=== PATIENT | male | born 1960 | race Caucasian/White ===

== ENCOUNTER 2016-10-27 14:54 | Emergency (ER) | payer OTHER, MEDICAID ==
[~2016-10-27] VITALS: Ht 175.3 cm; Wt 117.0 kg
[2016-10-27 15:35] VITALS: BP 114/57
[2016-10-27] MEDS ORDERED: cefTRIAXone 1GM/50ML D5W 50 ML IV ONE (17:30)
[2016-10-27] MEDS ORDERED: ONDANSETRON HCL 4 MG/2 ML VIAL ONE (18:08)
[2016-10-27] MEDS ORDERED: MORPHINE SULFATE 4 MG/ML SYRG ONE (18:08)
[2016-10-27] MEDS ORDERED: ONDANSETRON HCL 4 MG/2 ML VIAL IV ONE (18:15)
[2016-10-27] MEDS ORDERED: MORPHINE SULFATE 4 MG/ML SYRG IV ONE (18:15)
== END 2016-10-27 18:43 | disposition home or self-care (01) ==
LOC: ER 14:54
DX: N45.1 Epididymitis (principal)
CPT/HCPCS: 76870; 96365; 99284; J0696; J2270; J2405

== ENCOUNTER 2016-10-30 05:32 | Emergency (ER) | payer OTHER, MEDICAID ==
[~2016-10-30] VITALS: Ht 175.3 cm; Wt 113.4 kg
[2016-10-30 06:31] LABS: Hematocrit 26.5 % (41.0-53.0); Hemoglobin 9.2 g/dL (13.5-17.5); Mean Corpuscular Hgb Conc. 34.8 g/dL (32.0-36.0); Mean Corpuscular Volume 83.2 fL (80.0-100.0); Mean Platelet Volume 8.9 fL (7.4-10.4); Platelet Count (auto) 160 10^3/uL (140-450); Red Cell Distribution Width 14.3 % (11.6-16.0); SUSPECT VIEW TRANSMISSION; White Blood Cell 22.6 10^3/uL (4.4-10.8)
[2016-10-30 06:53] LABS: Albumin 1.5 g/dL (3.4-5.0); BUN/Creatinine Ratio 14.6; Calcium 8.3 mg/dL (8.5-10.1); Potassium 3.8 mmol/L (3.5-5.1)
[2016-10-30 06:56] LABS: Bilirubin, Total 0.2 mg/dL (0.2-1.0); Total Protein 6.8 g/dL (6.4-8.2)
[2016-10-30 07:22] LABS: Metamyelocytes % 0; Myelocytes % 0; Promyelocytes % 0; Reactive Lymphocytes 0
[2016-10-30 07:37] LABS: Platelet Estimate Adequate
[2016-10-30 07:39] LABS: Giant Platelets Few; Toxic Granulation Slight
[2016-10-30] MEDS ORDERED: PIPERACILLIN-TAZOB 3.375GM 100 ML IV ONE (09:15)
[2016-10-30] MEDS ORDERED: SODIUM CHLORIDE 0.9% 1,000 ML IV ONE ×2 (09:37)
[2016-10-30 09:45] LABS: Urine Bilirubin Negative (Negative); Urine Color Yellow (Yellow); Urine Ketone Negative (Negative); Urine Nitrite Negative (Negative); Urine RBC 23 /hpf (0 - 3); Urine Squamous Epithelial Cell FEW /hpf (<5); Urine Urobilinogen Normal (Negative)
[2016-10-30] MEDS ORDERED: CLINDAMYCIN 900MG IV 50 ML IV ONE (09:45)
[2016-10-30 09:47] LABS: Urine Blood 1+ /uL (Negative); Urine Glucose 3+ mg/dL (Normal)
[2016-10-30 14:31] VITALS: BP 104/55
== END 2016-10-30 15:10 | disposition short-term general hospital (02) ==
LOC: ER 05:32
DX: N45.1 Epididymitis (principal); N45.2 Orchitis; N49.2 Inflammatory disorders of scrotum; E11.22 Type 2 diabetes mellitus with diabetic chronic kidney disease; N18.9 Chronic kidney disease, unspecified
CPT/HCPCS: 36415; 76870; 80053; 81001; 83605; 85007; 85027; 87040; 96365; 96368; 99291; J2543; J3490; J7030